=== PATIENT | female | born 1975 | race Caucasian/White ===

== ENCOUNTER 2019-02-16 12:47 | Inpatient (IN) | payer SELFPAY ==
[2019-02-16] VITALS (7 sets, daily range): BP systolic 97–107; BP diastolic 62–69; PULSE 88–116; RESP 10–20; TEMP 36.4–36.7; O2SAT 98–100; BMI 24.9; BMI 25.5; BMI 25.6
--- NOTE | 2019-02-16 13:33 | RAD_ITS ---
STUDY: X-RAY - RIGHT FOOT CLINICAL: Female, 43 years old. First toe infection TECHNIQUE: 3 view(s) of the foot. COMPARISON: None. FINDINGS: There is no evidence of fracture or dislocation. There are no definite radiographic findings of osteomyelitis. There is diffuse soft tissue swelling overlying the first toe. There are no radiodense foreign bodies. RAD/Foot min 3 Views IMPRESSION: Diffuse soft tissue swelling overlying the first toe. No fracture or dislocation. No definite radiographic findings of osteomyelitis. Electronically Signed: Adal Botello, at 14:55 EDT Tel , Service support ,
--- NOTE | 2019-02-16 13:35 | ED.VIS.LOWEX ---
History of Present Illness Chief Complaint: Cellulitis Informant: Patient Onset: Days - 4 Context: Gradual Onset Timing: Continuous Quality of Pain: Aching Location: right great toe Current Severity: Moderate Maximum Severity: Moderate Worsened by: walking, palpation Relieved by: leaving alone Associated Symptoms: Parasthesia - chronic R foot. Negative for: Weakness, Loss of Funtion Narrative: Patient states she has chronic neuropathy in her right lower extremity due to a back surgery, although she does not have chronic back pain now. She checked her foot randomly around 4 days ago and noticed that there was a wound on the bottom that look like it might be early infection. She tried to keep it clean and take care of it, but gradually it has become worse and her toes become red, painful, swollen. She denies any fevers or systemic symptoms. Wound on the bottom of her toe has been draining purulent material. She denies any immunocompromising conditions or medications recently, and she is not a diabetic. No known injury or FB that she knows of. This is the first visit to a healthcare provider for this problem. Tetanus Immunization: Unknown - Past Medical History (1) Peripheral neuropathy Status: Chronic Past Medical History - Allergies and Home Meds Allergies/Adverse Reactions: Allergies morphine Adverse Reaction (Verified 02/16/19 12:48) Hives Primary Care Physician: Care Physician,No Primary [Primary Care Provider] - Surgical History: - - back Lives: Spouse/ Significant Other Smoking Status: Current every day smoker Drugs: None Review of Systems General: Denies: Chills, Fever, Sweats Eyes: Denies: Visual changes - bilaterally, Diplopia ENT: Denies: Rhinorrhea, Sore throat Cardiovascular: Denies: Chest pain, Palpitations Respiratory: Denies: Dyspnea, Cough, Dyspnea on exertion Gastrointestinal: Denies: Abdominal pain, Nausea, Vomiting, Diarrhea, Melena, Hematochezia Genitourinary: Denies: Dysuria, Hematuria, Frequency Musculoskeletal: Reports: Extremity Pain. Denies: Back pain Skin: Reports: Abscess, Wounds Neurological: Reports: Numbness - RLE, chronically intermittent. Denies: Headache, Weakness Physical Exam Vital Signs/Narrative: Vital Signs Temp Pulse Resp BP Pulse Ox 02/16/19 12:48 97.6 F L 116 H 17 106/63 100 Inital Vital Signs reviewed: Yes General: Well nourished, Well developed, - - nad Head: Normocephalic, Atraumatic Eyes: Perrl, EOMI ENT: No Trauma, Moist Mucous Membranes Neck: Nontender, Full ROM Cardiovascular: Regular rate, Regular rhythm, No murmurs, Tachycardia Respiratory: No distress, CTA bilaterally, Chest nontender Abdomen: Soft, Nontender, Nondistended, Normal bowel sounds Skin: Rash - Right great toe is diffusely swollen, erythematous, tender. There is what appears to be a nidus at the plantar aspect of the pad of the toe where there is purulent drainage. No drainage from anywhere else. The erythema that there is out over the metatarsals, just proximal to the toe and there is no lymphangitis or tenderness proximal to the metatarsal area. No other toes are affected., - - No clear foreign body evident on physical exam at right great toe Neurological: Alert, Oriented x3, Cranial nerves II-XII grossly intact, Normal Strength, Parasthesia - Right foot decreased sensation but able to feel and is tender in the great toe Psychological: Normal affect, Normal Mood Diagnostic/Tx/Re-eval Impressions Foot X-Ray 02/16/19 13:33 IMPRESSION: Diffuse soft tissue swelling overlying the first toe. No fracture or dislocation. No definite radiographic findings of osteomyelitis. Electronically Signed: Adal Botello, at 14:55 EDT Tel , Service support , 02/16/19 13:33 Foot min 3 Views [RAD] Stat 02/16/19 14:40 Wound Abcess - Right Foot Gram Stain - Final Laboratory Results 02/16/19 02/16/19 02/16/19 13:55 13:55 13:55 WBC 10.7 RBC 4.95 Hgb 14.6 Hct 45.3 MCV 91.5 MCH 29.5 MCHC 32.2 RDW Std Deviation 45.0 H RDW Coeff of Marry 13.2 Plt Count 311 MPV 8.9 Immature Gran % (Auto) 0.300 Neut % (Auto) 74.8 H Lymph % (Auto) 17.0 L [place] % (Auto) 6.6 Eos % (Auto) 0.8 Baso % (Auto) 0.5 Absolute Neuts (auto) 8.0 H Absolute Lymphs (auto) 1.82 Nucleated RBC % 0 ESR 7 PT 13.5 INR 1.1 APTT 30.9 Sodium 139 Potassium 4.0 Chloride 107 Carbon Dioxide 28.0 Anion Gap 4 L BUN 12 Creatinine 1.03 H Estim Creat Clear Calc 69.19 Est GFR (MDRD) Af Amer 75 Est GFR (MDRD) Non-Af 62 BUN/Creatinine Ratio 11.7 Glucose 75 Lactic Acid Calcium 9.0 Total Bilirubin 0.40 AST 13 L ALT 28 Alkaline Phosphatase 91 C-React Prot Ext Range 19.00 H Total Protein 7.7 Albumin 3.4 Globulin 4.3 H Albumin/Globulin Ratio 0.8 L 02/16/19 13:55 WBC RBC Hgb Hct MCV MCH MCHC RDW Std Deviation RDW Coeff of Marry Plt Count MPV Immature Gran % (Auto) Neut % (Auto) Lymph % (Auto) [place] % (Auto) Eos % (Auto) Baso % (Auto) Absolute Neuts (auto) Absolute Lymphs (auto) Nucleated RBC % ESR PT INR APTT Sodium Potassium Chloride Carbon Dioxide Anion Gap BUN Creatinine Estim Creat Clear Calc Est GFR (MDRD) Af Amer Est GFR (MDRD) Non-Af BUN/Creatinine Ratio Glucose Lactic Acid 4.5 H* Calcium Total Bilirubin AST ALT Alkaline Phosphatase C-React Prot Ext Range Total Protein Albumin Globulin Albumin/Globulin Ratio - Medical Decision Making Although patient does not meet sirs criteria, her lactate is 4.5. More concerning is a clinical appearance of her toe infection. There is pus coming out of the plantar wound, I prepped this in sterile fashion with chlorhexidine and expressed fresh purulent material onto a pair of culture swabs and sent that before antibiotics were begun. She was given empiric vancomycin here. X-rays do not show any radiographic evidence of osteomyelitis, her CRP is significantly elevated but her ESR is normal, her white blood count is at the high end of the normal range and there are no bands. The ancillary testing does not rule out the possibility of significant infection here, it does not rule in or rule out osteomyelitis, and blood cultures were sent to rule out resultant bacteremia from this infection. I discussed with podiatry Dr. boogie, who after seen the infection agrees that certainly there is the possibility of early osteomyelitis that has not yet shown on x-ray and recommends admission, IV antibiotics, and possible surgical debridement. Patient was apprehensive about this and there were long delays in the ER because of her apprehension given social issues outside of the emergency department and her foot but was eventually agreeable to stay. It is unknown if she has a non-radiopaque foreign body present or if this is an infected blister or abrasion. ED Disposition - Plan for ED Patient: Disposition: Acute [facility] Diagnosis: Right foot infection Referrals: Care Physician,No Primary [Primary Care Provider] -
[2019-02-16 14:09] LABS: Absolute Lymphocyte Count 1.82 X10^3/uL (0.83-4.51); Basophil# 0.05 X10^3/uL; Basophil% 0.5 % (0-1); Eosinophil# 0.09 X10^3/uL; Eosinophils% 0.8 % (0-5); Hematocrit 45.3 % (37-47); Hemoglobin 14.6 g/dL (12.0-15.0); Lymphocyte # 1.82 X10^3/ul (4.0); Mean Corp Hgb Conc 32.2 g/dL (32-36); Mean Corpuscular Hgb 29.5 pg (27.0-32.0); Mean Corpuscular Volume 91.5 fL (81-99); Mean Platelet Vol. 8.9 fl (6.2-12.0); Monocyte# 0.71 X10^3/uL; Monocyte% 6.6 % (0-10); NRBC Flagged by Analyzer 0 % (0-5); Neutrophil # 8.03 X10^3/uL (2.7-7.7); Neutrophil % 74.8 % (47-70); Platelet Count 311 K/mm3 (150-450); RBC Distribution Width CV 13.2 % (11.6-14.6); Red Blood Count 4.95 M/mm3 (4.2-5.4); White Blood Count 10.7 K/mm3 (4.4-11.0)
[2019-02-16 14:18] LABS: Erythrocyte Sedimentation Rate 7 mm/hr (0-20)
[2019-02-16 14:27] LABS: ALB/GLOB Ratio 0.8 RATIO (0.9-2.4); AST(SGOT) 13 U/L (15-37); Alanine Aminotransfer ALT/SGPT 28 U/L (13-56); Albumin, Serum 3.4 g/dL (3.2-5.0); Alkaline Phosphatase 91 U/L (45-117); Anion Gap 4 (5-15); BUN 12 mg/dL (7-18); BUN/Creat Ratio 11.7 RATIO (10-20); Chloride 107 mmol/L (98-107); Creatinine, Serum 1.03 mg/dL (0.55-1.02); EST Glomerular Filtration Rate 62 mL/min (>60); Est Glom Filt Rate - Afr Amer 75 mL/min (>60); Estimated Creatinine Clearance 69.19 ml/min; Globulin 4.3 g/dL (2.2-4.2); Glucose 75 mg/dL (74-106); Protein, Total 7.7 g/dL (6.4-8.2); Sodium Level 139 mmol/L (136-145)
[2019-02-16 14:30] LABS: International Normalized Ratio 1.1; Prothrombin Time (Protime)PT. 13.5 SECONDS (11.7-14.9)
[2019-02-16 14:31] LABS: Partial Thromboplast Time 30.9 Seconds (24.1-36.2)
[2019-02-16] MEDS: Vancomycin IV 1,000 MG/200 ML BAG 200 MG IV (14:31)
[2019-02-16 14:40] LABS: Lactic Acid 4.5 mmol/L (0.4-2.0)
--- NOTE | 2019-02-16 14:40 | ED.RN ---
DR BURNHAM NOTIFIED LACTIC=4.5. NNO VOICED
[2019-02-16 18:04] LABS: Reflex Lactate? Y
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
[2019-02-16] MEDS: LORazepam 1 MG Tablet PO (19:12)
[2019-02-16] MEDS: HYDROcodone Bitartrate/Apap 5/325 Tablet PO (19:12)
[2019-02-16 19:27] LABS: Lactic Acid 1.8 mmol/L (0.4-2.0)
--- NOTE | 2019-02-16 20:05 | RAD_ITS ---
STUDY: X-RAY CHEST REASON FOR EXAM: Female, 43 years old. Pre-op TECHNIQUE: Single frontal view of the chest. COMPARISON: None. FINDINGS: The lungs are clear and expanded. There is no demonstrated pleural abnormality. Normal size heart. Normal mediastinum and jace. Normal visualized pulmonary arteries. Normal visualized aortic arch and descending thoracic aorta. Normal visualized thoracic spine. Normal visualized ribs, clavicles, and shoulders. There is no demonstrated abnormality of the visualized soft tissue structures of the upper abdomen. RAD/Chest 1 View IMPRESSION: Normal x-ray examination of the chest. Electronically Signed: James Syed MD at 21:25 EDT Tel , Service support ,
--- NOTE | 2019-02-16 20:32 | PCM.HP.STD ---
History of Present Illness Date of Admission: 02/16/19 Chief Complaint: Right foot infection The patient is a 43 year old female with history of lumbar back surgery (fusion), right drop foot, and peripheral neuropathy presented to the ER today for wound right 1st toe with swelling and redness. She relates this started on Monday, she there might be something in it, she relates she tried to get it out herself. She relates there is drainage as well. Right foot xrays obtained in the ER and negative for gas or osteomyelitis. WBC normal. Lactic acid elevated. Patient afebrile. She relates to some pain to the 1st toe. In the ER there was noted to be significant erythema, edema and purulence present. Due to this she was admitted for IV antibiotics and planning for OR to do debridement and I+D right foot. Patient relates she smokes 1PPD since she was 15 years old. She relates to history of anxiety, but denies any other medical problems. Past Medical History Past Medical History (Chronic Problems): Chronic Problems Peripheral neuropathy (Chronic) Allergies morphine Adverse Reaction (Verified 02/16/19 12:48) Hives Home Medications: Ambulatory Orders Medication Instructions Recorded NK 02/16/19 Surgical History: - - back Lives: Spouse/ Significant Other Smoking Status: Current every day smoker Drugs: None - *Family History Maternal History Items: - - . Sibling History Items: Heart Disease - brother Review of Systems Constitutional: Denies: Chills, Fever Cardiovascular: Denies: Chest Pain, Chest Pressure Respiratory: Denies: Shortness of Breath Gastrointestinal: Denies: Nausea, Vomiting Musculoskeletal: Reports: Foot Pain. Denies: Back Pain, Joint Pain, Joint stiffness VTE Information - Inpt Only VTE Present on Admission: No Patient Problems: Active and Suspected Problems Right foot infection (Acute) - Physical Exam General: Alert, Oriented x3, Cooperative, No apparent distress Extremities: Capillary Refill Less than 3 Seconds, No Calf Tenderness, Peripheral Pulses Normal, - - Ulceration plantar right hallux with serous drainage at this time, there is erythema and edema to the 1st toe, edema extends to the entire dorsal right foot, no streaking, no visible abscess, there is pain on palpation to the 1st toe and unable to fully evaluate depth due to pain, but there is decreased sensation to the foot c/w peripheral neuropathy. Vascular status intact bilateral foot/ankle, no evidence of acute ischemia to the foot or ankle bilateral. No open lesions or evidence of infection left foot or ankle. CFT < 2 seconds to all toes bilateral. Motor function and muscle strength intact to the foot/ankle with exception dorsiflexion weakness on the right foot/ankle. POP to the right 1st toe, there is hallux valgus bunion deformity right foot, no other POP or pain on ROM to the rest of the foot or ankle bilateral. Musculoskeletal: No Muscle Wasting Psych/Mental Status: Normal Affect, Alert and oriented to time, place, person, mood and affect Vital Signs Temp Pulse Resp BP Pulse Ox 97.7 F L 97 16 107/66 98 02/16/19 17:25 02/16/19 17:25 02/16/19 19:12 02/16/19 17:25 02/16/19 17:25 Oxygen Delivery Method Room Air Weight: 74.1 kg Body Mass Index (BMI) 25.5 Intake and Output for Last 24 Hours 02/14/19 02/15/19 02/16/19 23:59 23:59 23:59 Intake Total 200 / 200 Balance 200 / 200 Microbiology Past 72 Hours 02/16/19 14:40 Gram Stain - Final Wound Abcess - Right Foot Laboratory Tests Past 24 Hrs 02/16/19 02/16/19 02/16/19 13:55 13:55 13:55 WBC 10.7 RBC 4.95 Hgb 14.6 Hct 45.3 MCV 91.5 MCH 29.5 MCHC 32.2 RDW Std Deviation 45.0 H RDW Coeff of Marry 13.2 Plt Count 311 MPV 8.9 Immature Gran % (Auto) 0.300 Neut % (Auto) 74.8 H Lymph % (Auto) 17.0 L [place] % (Auto) 6.6 Eos % (Auto) 0.8 Baso % (Auto) 0.5 Absolute Neuts (auto) 8.0 H Absolute Lymphs (auto) 1.82 Nucleated RBC % 0 ESR 7 PT 13.5 INR 1.1 APTT 30.9 Sodium 139 Potassium 4.0 Chloride 107 Carbon Dioxide 28.0 Anion Gap 4 L BUN 12 Creatinine 1.03 H Estim Creat Clear Calc 69.19 Est GFR (MDRD) Af Amer 75 Est GFR (MDRD) Non-Af 62 BUN/Creatinine Ratio 11.7 Glucose 75 Lactic Acid Calcium 9.0 Total Bilirubin 0.40 AST 13 L ALT 28 Alkaline Phosphatase 91 C-React Prot Ext Range 19.00 H Total Protein 7.7 Albumin 3.4 Globulin 4.3 H Albumin/Globulin Ratio 0.8 L S.aureus Protein A PCR MRSA (PCR) 02/16/19 02/16/19 02/16/19 13:55 14:40 18:52 WBC RBC Hgb Hct MCV MCH MCHC RDW Std Deviation RDW Coeff of Marry Plt Count MPV Immature Gran % (Auto) Neut % (Auto) Lymph % (Auto) [place] % (Auto) Eos % (Auto) Baso % (Auto) Absolute Neuts (auto) Absolute Lymphs (auto) Nucleated RBC % ESR PT INR APTT Sodium Potassium Chloride Carbon Dioxide Anion Gap BUN Creatinine Estim Creat Clear Calc Est GFR (MDRD) Af Amer Est GFR (MDRD) Non-Af BUN/Creatinine Ratio Glucose Lactic Acid 4.5 H* 1.8 Calcium Total Bilirubin AST ALT Alkaline Phosphatase C-React Prot Ext Range Total Protein Albumin Globulin Albumin/Globulin Ratio S.aureus Protein A PCR Pending MRSA (PCR) Pending Assessment/Plan All Active Problems Right foot infection (Acute) Cellulitis right with abscess and concern for osteomyelitis right 1st toe Peripheral neuropathy, drop right foot Patient will be admitted for IV antibiotics and planning to go to OR tomorrow tomorrow. This was discussed with her, she agreed with this plan. Vanc/Zosyn started, cultures obtained and results pending at this time. MRI ordered right foot. Discussed with patient debridement with I+D, possible bone biopsy right foot - reviewed rationale of this, as well as possible benefits vs risks, goals, and expectations. Acetaminophen and Toradol for pain management. Hospitalist service consulted for medical evaluation and management. Discussed with Dr. Calderon.
--- NOTE | 2019-02-16 20:43 | PCM.RX.CS ---
Consult Pharmacy has been consulted to manage selected antiobiotic: Vancomycin Type of Consult: New start Suspected Infection: Skin/Soft tissue Labs: Sodium 139 mmol/L (136-145) 02/16/19 13:55 Potassium 4.0 mmol/L (3.5-5.1) 02/16/19 13:55 Chloride 107 mmol/L (98-107) 02/16/19 13:55 Carbon Dioxide 28.0 mmol/L (21.0-32.0) 02/16/19 13:55 Anion Gap 4 (5-15) L 02/16/19 13:55 BUN 12 mg/dL (7-18) 02/16/19 13:55 Creatinine 1.03 mg/dL (0.55-1.02) H 02/16/19 13:55 Est GFR (MDRD) Af Amer 75 mL/min (>60) 02/16/19 13:55 Est GFR (MDRD) Non-Af 62 mL/min (>60) 02/16/19 13:55 BUN/Creatinine Ratio 11.7 RATIO (10-20) 02/16/19 13:55 Glucose 75 mg/dL (74-106) 02/16/19 13:55 Microbiology: Microbiology 02/16/19 14:40 Wound Abcess - Right Foot Gram Stain - Final Weight used for dosin.1 kg Estimated Creatinine Clearance: 74.8 Goal Trough: 10-15 mcg/mL Pharmacy Plan for Drug Dosing: Pharmacy Service will continue to monitor and adjust dosing as required. Medications Vancomycin HCl 750 mg/ Sodium (Chloride) 265 mls @ 250 mls/hr IV Q12H LUCIANA Discontinued Medications Vancomycin HCl (Vancomycin) 1,000 mg in 200 mls @ 200 mls/hr IV X1 ONE Stop: 02/16/19 14:59 Last Admin: 02/16/19 15:31 Dose: Infused Documented by: Follow-Up Labs: Trough Vancomycin Labs to be done on [date and time ordered]: 02/18 @ 0200
[2019-02-16] MEDS: 0.9% NaCl Peripheral Flush Adult/Peds IV (20:45)
[2019-02-16 21:18] LABS: Cholesterol 176 mg/dL (200); High Density Lipoprotein 77 mg/dL; Triglycerides 168 mg/dL; Very Low Density Lipoprotein 34 mg/dL (5-40)
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
[2019-02-16 21:47] LABS: Probe Check PASS; Staph aureus DNA By PCR POSITIVE (Negative)
[2019-02-16 21:49] LABS: M R Staph aureus DNA By PCR POSITIVE (Negative)
[2019-02-16] MEDS: 0.9% NaCl IVPB Med Flush (250 mL) 15 ML IV (21:59)
[2019-02-16 22:35] LABS: Uric Acid 3.1 mg/dL (2.6-6.0)
[2019-02-17] VITALS (10 sets, daily range): BP systolic 83–100; BP diastolic 50–63; PULSE 72–87; RESP 16–18; TEMP 36.3–37.2; O2SAT 98–100; BMI 25.5
[2019-02-17 00:02] LABS: Internal QC Validated? YES +Cl - CLEAR BKGD; Pregnancy, Urine Negative Negative
[2019-02-17 06:28] LABS: Absolute Lymphocyte Count 1.78 X10^3/uL (0.83-4.51); Absolute Neutrophil Count 5.4 X10^3/uL (2.0-7.7); Basophil# 0.06 X10^3/uL; Basophil% 0.8 % (0-1); Eosinophil# 0.09 X10^3/uL; Eosinophils% 1.1 % (0-5); Hematocrit 46.1 % (37-47); Lymphocyte # 1.78 X10^3/ul (4.0); Lymphocyte % 22.5 % (19-41); Mean Corp Hgb Conc 32.5 g/dL (32-36); Mean Corpuscular Hgb 30.1 pg (27.0-32.0); Mean Corpuscular Volume 92.4 fL (81-99); Mean Platelet Vol. 9.1 fl (6.2-12.0); Monocyte# 0.52 X10^3/uL; Monocyte% 6.6 % (0-10); NRBC Flagged by Analyzer 0 % (0-5); Neutrophil # 5.42 X10^3/uL (2.7-7.7); Neutrophil % 68.6 % (47-70); Platelet Count 310 K/mm3 (150-450); RBC Distribution Width CV 13.2 % (11.6-14.6); Red Blood Count 4.99 M/mm3 (4.2-5.4); White Blood Count 7.9 K/mm3 (4.4-11.0)
--- NOTE | 2019-02-17 06:43 | NURSING ---
Report given to OR. They are ready for pt at this time.
[2019-02-17 06:47] LABS: Anion Gap 4 (5-15); BUN 15 mg/dL (7-18); BUN/Creat Ratio 18.9 RATIO (10-20); Calcium,Total 8.7 mg/dL (8.5-10.1); Chloride 106 mmol/L (98-107); EST Glomerular Filtration Rate 84 mL/min (>60); Est Glom Filt Rate - Afr Amer 102 mL/min (>60); Estimated Creatinine Clearance 89.08 ml/min; Glucose 97 mg/dL (74-106); Potassium 4.7 mmol/L (3.5-5.1); Sodium Level 137 mmol/L (136-145)
[2019-02-17] MEDS: 0.9% Normal Saline 1,000 ML 100 ML IV (07:00)
[2019-02-17] MEDS: Bupivacaine Mpf 0.5% 30 ML VIAL (07:16)
--- NOTE | 2019-02-17 07:37 | PCM.OPRPT ---
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 WBC and ESR normal, CRP elevated at 19. MRSA DNA PCR positive. Xrays right foot with no gas or evidence of osteomyelitis. Patient has significant cellulitis, edema and pain to the right foot especially right 1st toe. Given the findings she was admitted for antibiotics with surgical planning. She elected to proceed with debridement and I+D right foot. This was discussed with her in detail, reviewed rationale of this with her, along with the possible benefits vs risks, goals and expectations. Advised patient risks include but are not limited to persistent infection, worsening infection, pain, swelling, numbness, delayed healing, nonhealing, blood clots, weakness, loss of function, loss of limb, loss of life. Patient able to repeat back. All of her questions were answered. No guarantees were made nor implied. The consent form was reviewed with patient and she freely signed it. 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 Operative Procedure: The patient was brought back to the operating room and was placed on the operating room in the supine position. She was carefully secured with a safety belt around her waist. A timeout was performed and the patient was properly identified and the surgical plan confirmed. The patient is already on IV antibiotic therapy. A well padded pneumatic tourniquet was applied around the right ankle. The patient received MAC anesthesia per the anesthesia team. The skin was cleaned with 70% isopropyl alcohol and a right foot 1st ray block was completed using 10mL of 0.5% Bupivacaine plain. The right foot was scrubbed, prepped, and draped in the usual aseptic fashion. Further attention was directed to the right foot. There is ulceration to the plantar 1st toe with purulence, as well as significant cellulitis and noted edema which extended to the dorsal foot. The right foot was elevated and the right ankle pneumatic tourniquet was inflated to 250mmHg. The 1st toe was milked and there was significant purulence present. A deep wound culture was obtained from the site and sent to microbiology for further evaluation. The wound was noted to extend down to the tendon/fascia layer of the plantar 1st toe. There was noted undermining of the ulceration along with callus formation around the edges. The ulcer measured 0.3cm x 0.5cm prior to debridement. There was nonviable tissue to the base and margins, with abscess formation present to the site. The ulceration was debrided in excisional fashion removing all nonviable tissue as well as removing the abscess. This was done with a combination of 15 blade, rongeur as well as a sharp curette. This was debrided down to healthy viable base and margins. There was no probe to bone, and did not appear to involve bone at this time. Post debridement the ulceration measured 3.5cm x 1cm and 0.5cm in depth down to the fascia and tendon layer. Attention was directed to the dorsal 1st toe, and an incision was made just medial to the extensor hallucis tendon. The subcutaneous tissue was visualized, there was significant yellow serous drainage present consistent with infection, otherwise the remaining tissues were healthy, viable and intact. No probe to bone and did not appear bone was involved at this level. The sites were flushed out with copious amounts of normal saline solution. All remaining tissues appeared healthy and viable at this time. The site was packed with 1/4inch Iodoform packing, and overlying gauze, Kerlix and paulina bandage was applied. The pneumatic tourniquet was deflated and there was immediate return of warmth and perfusion to the foot and all 5 toes. CFT< 2 seconds to all toes. Total tourniquet time was 10 minutes. The patient was transported from the operating room to the recovery room with vital signs stable and in good condition. Post operative orders placed. No weightbearing right foot, keep right foot elevated. Continue to follow cultures and continue with antibiotic therapy at this time. Patient will be followed as inpatient at this time. Grafts/Implants Used: None - Complications None
--- NOTE | 2019-02-17 08:08 | PCA ---
pt off floor
--- NOTE | 2019-02-17 08:12 | NURSING ---
call placed to lab about sample received from surgery.. per Dr. Sandoval if no tissue present then AFB can not be run. but fungus and deep wound cultures should be run.
--- NOTE | 2019-02-17 14:55 | PN_ITS ---
Patient Problems: Active and Suspected Problems Right foot infection (Acute) Subjective: Patient seen and examined today on [facility] [place] [place] [facility], she had surgery on her right foot today by podiatry. Patient has no complaints of discomfort in her foot at this time, she has no complaints of any shortness of breath or chills. - Physical Exam General: Alert, Oriented x3, Cooperative, No apparent distress, Well developed HEENT: Atraumatic, PERRLA, EOMI, Normocephalic Oral: Moist Mucosa Neck: Supple, No JVD, Trachea Midline, Thyroid Normal Size and Texture Lungs: Clear to auscultation, Normal air movement, No rhonchi, No wheeze, No rales Cardiovascular: Regular rate, Regular Rhythm, Normal S1, Normal S2, No murmurs, PMI Normal, No rub noted Abdomen: Bowel Sounds Present, Soft, Non Tender, Non-Distended Extremities: No cyanosis, Capillary Refill Less than 3 Seconds Neurological: Cranial nerves II-XII grossly intact, Neuro grossly intact, Muscle tone normal, Sensory exam intact to light touch and pain Psych/Mental Status: Normal Affect, Appropriate, Alert and oriented to time, place, person, mood and affect Vital Signs Temp Pulse Resp BP Pulse Ox 97.6 F L 72 16 98/60 100 02/17/19 08:29 02/17/19 08:29 02/17/19 08:29 02/17/19 08:29 02/17/19 08:29 Oxygen Delivery Method Room Air Weight: 74.1 kg Body Mass Index (BMI) 25.5 Intake and Output for Last 24 Hours 02/15/19 02/16/19 02/17/19 23:59 23:59 23:59 Intake Total 212 / 512 706.25 / 706.25 Output Total 700 / 700 Balance 212 / 512 6.25 / 6.25 Microbiology Past 72 Hours 02/16/19 14:40 Gram Stain - Final Wound Abcess - Right Foot Wound Culture - Preliminary Staphylococcus aureus 02/16/19 14:24 Urine Culture - Preliminary Urine, Clean Catch Culture exhibits no growth. Laboratory Tests Past 24 Hrs 02/16/19 02/16/19 02/16/19 13:55 13:55 14:24 WBC RBC Hgb Hct MCV MCH MCHC RDW Std Deviation RDW Coeff of Marry Plt Count MPV Immature Gran % (Auto) Neut % (Auto) Lymph % (Auto) [place] % (Auto) Eos % (Auto) Baso % (Auto) Absolute Neuts (auto) Absolute Lymphs (auto) Nucleated RBC % Sodium Potassium Chloride Carbon Dioxide Anion Gap BUN Creatinine Estim Creat Clear Calc Est GFR (MDRD) Af Amer Est GFR (MDRD) Non-Af BUN/Creatinine Ratio Glucose Lactic Acid Uric Acid 3.1 Calcium Triglycerides 168 Cholesterol 176 LDL Cholesterol 65 VLDL Cholesterol 34 HDL Cholesterol 77 Urine Test Negative S.aureus Protein A PCR MRSA (PCR) 02/16/19 02/16/19 02/17/19 14:40 18:52 05:50 WBC 7.9 RBC 4.99 Hgb 15.0 Hct 46.1 MCV 92.4 MCH 30.1 MCHC 32.5 RDW Std Deviation 45.0 H RDW Coeff of Marry 13.2 Plt Count 310 MPV 9.1 Immature Gran % (Auto) 0.400 Neut % (Auto) 68.6 Lymph % (Auto) 22.5 [place] % (Auto) 6.6 Eos % (Auto) 1.1 Baso % (Auto) 0.8 Absolute Neuts (auto) 5.4 Absolute Lymphs (auto) 1.78 Nucleated RBC % 0 Sodium Potassium Chloride Carbon Dioxide Anion Gap BUN Creatinine Estim Creat Clear Calc Est GFR (MDRD) Af Amer Est GFR (MDRD) Non-Af BUN/Creatinine Ratio Glucose Lactic Acid 1.8 Uric Acid Calcium Triglycerides Cholesterol LDL Cholesterol VLDL Cholesterol HDL Cholesterol Urine Test S.aureus Protein A PCR POSITIVE H MRSA (PCR) POSITIVE H 02/17/19 05:50 WBC RBC Hgb Hct MCV MCH MCHC RDW Std Deviation RDW Coeff of Marry Plt Count MPV Immature Gran % (Auto) Neut % (Auto) Lymph % (Auto) [place] % (Auto) Eos % (Auto) Baso % (Auto) Absolute Neuts (auto) Absolute Lymphs (auto) Nucleated RBC % Sodium 137 Potassium 4.7 Chloride 106 Carbon Dioxide 27.0 Anion Gap 4 L BUN 15 Creatinine 0.80 Estim Creat Clear Calc 89.08 Est GFR (MDRD) Af Amer 102 Est GFR (MDRD) Non-Af 84 BUN/Creatinine Ratio 18.9 Glucose 97 Lactic Acid Uric Acid Calcium 8.7 Triglycerides Cholesterol LDL Cholesterol VLDL Cholesterol HDL Cholesterol Urine Test S.aureus Protein A PCR MRSA (PCR) Medical Necessity - Tobacco Use Smoking Status: Current every day smoker Assessment/Plan All Active Problems Right foot infection (Acute) #1 right foot abscess-postop day 0 debridement of right foot abscess from MRSA- patient appears medically stable after surgery, continue present antibiotics #2 right lower extremity chronic neuropathy #3 degenerative joint disease of the lumbar spine #4 chronic right foot drop Code Visit Inpatient E&M: 43282 Subs Hosp L2
--- NOTE | 2019-02-17 15:58 | NURSING ---
at 1300 found pt outside of hospital along the side of the building. informed pt that she needs to go back to room to hang antibiotics. pt asked how she can leave today.. reminded her that when Dr. Sandoval was in room that he stated she needed to stay until tomorrow (02/18). pt stated that she wanted to leave . Informed her i can get a hold of doctor to see if will d/c and if not she can leave AMA. pt agreeable to AMA. Called Dr. Sandoval, he wants pt to come to office around 11am tomorrow (Mon 02/18) to get dressing changed and he will send antibiotic to [facility]..
--- NOTE | 2019-02-17 16:12 | NURSING ---
at 1330 informed pt of speaking with Dr. Sandoval and dressing and antibiotic orders. pt agreeable to this. pt asked if can have 1 of her 2 antibiotics that are due. Hung Vancomycin. . at 1450 antibiotic finished, iv d/c and pt left with previous instructions, informed pt to keep foot dry/clean, nonweight bearing to front of foot only weight to heel. pt left with crutches.
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
== END 2019-02-17 15:00 | disposition left against medical advice (07) | DRG 571 ==
LOC: ED 18:41 → MS3 20:04
PROVIDERS: Anesthesiology; Family Medicine; Admitting Provider Podiatrist; Emergency Provider Emergency Medicine; Referring Provider Podiatrist; Visit Provider Internal Medicine
PROC: 0JBQ0ZZ Excision of Right Foot Subcutaneous Tissue and Fascia, Open Approach (ICD-10-PCS; principal; 2019-02-17 07:00)
DX: L03.115 Cellulitis of right lower limb (principal); L02.611 Cutaneous abscess of right foot; L97.519 Non-pressure chronic ulcer of other part of right foot with unspecified severity; G62.9 Polyneuropathy, unspecified; M21.371 Foot drop, right foot; F17.210 Nicotine dependence, cigarettes, uncomplicated
CPT/HCPCS: 36415; 71045; 73630; 80048; 80053; 80061; 81025; 83605; 84550; 85025; 85610; 85652; 85730; 86140; 87040; 87070; 87075; 87077; 87086; 87102; 87186; 87205; 87206; 87640; 93005; 97162; 97802; 99283; J7030; J7050; A4216; J2405

== ENCOUNTER 2020-08-26 18:50 | Emergency (ER) | payer MEDICAID, SELFPAY ==
[2019-02-17 05:24] VITALS: BMI 25.5
[2020-08-26 18:51] VITALS: BP 118/78; PULSE 116; RESP 18; TEMP 36.9; O2SAT 93; BMI 22.7
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
[2020-08-26 21:52] LABS: Absolute Lymphocyte Count 2.02 X10^3/uL (0.83-4.51); Absolute Neutrophil Count 10.9 X10^3/uL (2.0-7.7); Basophil# 0.05 X10^3/uL; Basophil% 0.4 % (0-1); Eosinophil# 0.23 X10^3/uL; Eosinophils% 1.6 % (0-5); Hematocrit 32.3 % (37-47); Hemoglobin 10.4 g/dL (12.0-15.0); Lymphocyte # 2.02 X10^3/ul (4.0); Lymphocyte % 14.1 % (19-41); Mean Corp Hgb Conc 32.2 g/dL (32-36); Mean Corpuscular Hgb 28.3 pg (27.0-32.0); Mean Corpuscular Volume 87.8 fL (81-99); Mean Platelet Vol. 8.6 fl (6.2-12.0); Monocyte# 0.82 X10^3/uL; Monocyte% 5.7 % (0-10); NRBC Flagged by Analyzer 0 % (0-5); Neutrophil # 10.87 X10^3/uL (2.7-7.7); Neutrophil % 76.2 % (47-70); Platelet Count 742 K/mm3 (150-450); RBC Distribution Width CV 14.5 % (11.6-14.6); Red Blood Count 3.68 M/mm3 (4.2-5.4); White Blood Count 14.3 K/mm3 (4.4-11.0)
[2020-08-26 22:05] LABS: Anion Gap 4 (5-15); BUN 18 mg/dL (7-18); BUN/Creat Ratio 29.8 RATIO (10-20); Calcium,Total 8.8 mg/dL (8.5-10.1); Chloride 106 mmol/L (98-107); EST Glomerular Filtration Rate 115 mL/min (>60); Est Glom Filt Rate - Afr Amer 139 mL/min (>60); Estimated Creatinine Clearance 116.36 ml/min; Glucose 96 mg/dL (74-106); Potassium 3.9 mmol/L (3.5-5.1); Sodium Level 136 mmol/L (136-145)
[2020-08-26 23:00] VITALS: BP 90/57; PULSE 99; RESP 18; O2SAT 98
[2020-08-26 23:50] VITALS: BP 90/57; PULSE 99; RESP 18; O2SAT 98
== END 2020-08-27 01:55 | disposition short-term general hospital (02) ==
PROVIDERS: Emergency Medicine; Emergency Provider Emergency Medicine
DX: S00.12XA Contusion of left eyelid and periocular area, initial encounter (principal); S92.909A Unspecified fracture of unspecified foot, initial encounter for closed fracture; S37.29XA Other injury of bladder, initial encounter; S32.9XXA Fracture of unspecified parts of lumbosacral spine and pelvis, initial encounter for closed fracture; S42.009A Fracture of unspecified part of unspecified clavicle, initial encounter for closed fracture; S22.49XA Multiple fractures of ribs, unspecified side, initial encounter for closed fracture; V89.2XXA Person injured in unspecified motor-vehicle accident, traffic, initial encounter; Y93.9 Activity, unspecified; Y92.9 Unspecified place or not applicable; F17.200 Nicotine dependence, unspecified, uncomplicated; Z86.718 Personal history of other venous thrombosis and embolism; Z91.14 Patient's other noncompliance with medication regimen
CPT/HCPCS: 80048; 85025; 99285; A4216

== ENCOUNTER 2020-09-11 18:44 | Emergency (ER) | payer MEDICAID, SELFPAY ==
[2020-09-11 18:47] VITALS: BP 130/78; PULSE 124; RESP 15; TEMP 37; O2SAT 96; BMI 27.6
--- NOTE | 2020-09-11 19:11 | EKG12_ITS ---
Test Reason : DYSRHYTHMIA Blood Pressure : / mmHG Vent. Rate : 128 BPM Atrial Rate : 128 BPM P-R Int : 130 ms QRS Dur : 088 ms QT Int : 318 ms P-R-T Axes : 060 019 -04 degrees QTc Int : 464 [address] abnormality Abnormal ECG Confirmed by MELISSA WILD, BUBBA ([id number]), electronic news gathering editor EUN MORA ([id number]) on 09/14/2020 9:50:29 AM Referred By: KATHLEEN Confirmed By:TOMAS TORRES MD
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
[2020-09-11] MEDS: 0.9% Normal Saline 1,000 ML 999 ML IV (19:38)
[2020-09-11 19:44] LABS: Absolute Lymphocyte Count 1.73 X10^3/uL (0.83-4.51); Absolute Neutrophil Count 8.4 X10^3/uL (2.0-7.7); Basophil# 0.03 X10^3/uL; Basophil% 0.3 % (0-1); Eosinophil# 0.07 X10^3/uL; Eosinophils% 0.6 % (0-5); Hematocrit 30.3 % (37-47); Hemoglobin 9.6 g/dL (12.0-15.0); Lymphocyte # 1.73 X10^3/ul (0.83-4.51); Lymphocyte % 15.3 % (19-41); Mean Corp Hgb Conc 31.7 g/dL (32-36); Mean Corpuscular Hgb 27.3 pg (27.0-32.0); Mean Corpuscular Volume 86.1 fL (81-99); Mean Platelet Vol. 8.2 fl (6.2-12.0); Monocyte# 1.02 X10^3/uL; NRBC Flagged by Analyzer 0 % (0-5); Neutrophil # 8.37 X10^3/uL (2.7-7.7); Neutrophil % 74.2 % (47-70); Platelet Count 540 K/mm3 (150-450); RBC Distribution Width SD 43.8 fl (35.1-43.9); Red Blood Count 3.52 M/mm3 (4.2-5.4); White Blood Count 11.3 K/mm3 (4.4-11.0)
[2020-09-11] MEDS: Enoxaparin 80 MG/0.8 ML Syringe SC (19:49)
--- NOTE | 2020-09-11 19:49 | RAD_ITS ---
INDICATION: weakness EXAMINATION/TECHNIQUE: X-RAY - XR Chest 1 View COMPARISON: None. FINDINGS: Low lung volumes. Slight increase in interstitial markings, most likely due to low lung volumes. The cardiomediastinal silhouette is unremarkable. No pleural effusion or pneumothorax. No acute osseous abnormalities. Chronic fracture deformity of the right clavicle with plate and screw construct. RAD/Chest 1 View (Portable) IMPRESSION: No acute radiographic abnormalities. Electronically Signed: Star Dong MD at 20:15 EDT Tel , Service support ,
[2020-09-11 19:55] LABS: Mucous, Urine 0 SEEN /hpf (<or=2+); Squamous Epithelial Cells - UA 0 SEEN /hpf (5-10)
[2020-09-11 20:00] LABS: International Normalized Ratio 1.2; Partial Thromboplast Time 37.5 Seconds (24.1-36.2); Prothrombin Time (Protime)PT. 14.1 SECONDS (11.7-14.9)
[2020-09-11 20:10] LABS: ALB/GLOB Ratio 0.6 RATIO (0.9-2.4); AST(SGOT) 86 U/L (15-37); Alanine Aminotransfer ALT/SGPT 46 U/L (13-56); Albumin, Serum 2.8 g/dL (3.2-5.0); Alkaline Phosphatase 175 U/L (45-117); Anion Gap 7 (5-15); BUN 13 mg/dL (7-18); BUN/Creat Ratio 16.4 RATIO (10-20); Calcium,Total 9.2 mg/dL (8.5-10.1); Chloride 101 mmol/L (98-107); Creatinine, Serum 0.79 mg/dL (0.55-1.02); EST Glomerular Filtration Rate 84 mL/min (>60); Est Glom Filt Rate - Afr Amer 101 mL/min (>60); Estimated Creatinine Clearance 88.37 ml/min; Globulin 4.9 g/dL (2.2-4.2); Glucose 110 mg/dL (74-106); Lipase 32 U/L (73-393); Potassium 4.2 mmol/L (3.5-5.1); Protein, Total 7.7 g/dL (6.4-8.2); Sodium Level 135 mmol/L (136-145)
[2020-09-11 20:11] LABS: Lactic Acid 1.4 mmol/L (0.4-1.9)
--- NOTE | 2020-09-11 20:12 | CT_ITS ---
EXAMINATION : Head CT w/out contrast HISTORY : left sided weakness COMPARISON : None. TECHNIQUE : Multiple contiguous axial images were obtained from the skull base to the vertex without intravenous contrast. A radiation dose optimization technique was used for this scan. FINDINGS : The ventricles and sulci are normal in size. There is no evidence for acute intracranial hemorrhage, mass effect, or midline shift. There is no extra-axial fluid collection. There is normal sullivan-white differentiation, without CT evidence of acute ischemia or infarct. The skull base and calvarium are unremarkable. The orbits are unremarkable. Logan cisterna magna. The paranasal sinuses are clear. The mastoid air cells are well-aerated. The soft tissues are unremarkable. CT/Brain/Head without Contrast IMPRESSION: No acute intracranial abnormality. Logan cisterna magna. Electronically Signed: Star Dong MD at 21:19 EDT Tel , Service support ,
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
[2020-09-11 20:16] LABS: Alcohol, Blood (Medical)-Serum < 3.0 mg/dL
[2020-09-11 20:19] LABS: Color, Urine Yellow (Yellow); Glucose, Dipstick Normal (Normal); Ketone-Dipstick 5 mg/dl (Negative); Leukocyte Esterase-Dipstick 500 /ul (Negative); Nitrite-Dipstick Positive (Negative); Occult Blood-Urine 250 /ul (Negative); Protein-Dipstick 100 mg/dl (Negative); Specific Gravity, Urine 1.025 (1.002-1.030); Urine Bilirubin Dipstick Negative (Negative); Urine Clarity Cloudy (Clear); Urine Urobilinogen Normal (Normal)
[2020-09-11 20:33] LABS: Bacteria 1+ /hpf (None Seen); Red Blood Cells-Urine > 100 SEEN /hpf (0-5); White Blood Cells >100 SEEN /hpf (0-5)
[2020-09-11 20:35] LABS: Yeast-Urine RARE /hpf (None Seen)
[2020-09-11 20:38] LABS: Amphetamine Urine VISTA POSITIVE (<1000 ng/mL); Barbiturate Urine VISTA NEGATIVE (< 200 ng/mL); Benzodiazepine Urine VISTA POSITIVE (< 200 ng/mL); Cocaine Urine VISTA NEGATIVE (< 300 ng/mL); Ecstacy Urine VISTA POSITIVE (< 500 ng/mL); Methadone Urine VISTA NEGATIVE (< 300 ng/mL); PCP Urine VISTA NEGATIVE (< 25 ng/mL); THC Urine VISTA POSITIVE (< 50 ng/mL); Vista UDS pH Range 5
[2020-09-11 20:41] LABS: CPK Total, Creatine Kinase 1857 U/L (26-192)
[2020-09-11] MEDS: 0.9% Normal Saline 1,000 ML 250 ML IV (20:48)
[2020-09-11 20:49] VITALS: BP 104/58; PULSE 123; RESP 17; TEMP 37.1; O2SAT 94
[2020-09-11] MEDS: cycloBENZAPRine HCl 10 MG Tablet PO (21:56)
--- NOTE | 2020-09-11 22:16 | ED.RN ---
CALLED PHYSICIANS AT 2210 ETA WOULD BE 90 MINUTES FOR A RIDE TO [facility]
[2020-09-11 22:25] VITALS: BP 93/67; PULSE 114; RESP 18; TEMP 37.7; O2SAT 94
[2020-09-11] MEDS: levoFLOXacin IV 750 MG/150 ML BAG 100 MG IV (22:25)
[2020-09-11 23:55] VITALS: BP 92/65; PULSE 119; RESP 14; O2SAT 97
== END 2020-09-12 00:05 | disposition short-term general hospital (02) ==
PROVIDERS: Emergency Provider Emergency Medicine
DX: A41.9 Sepsis, unspecified organism (principal); F19.10 Other psychoactive substance abuse, uncomplicated; N39.0 Urinary tract infection, site not specified; I82.402 Acute embolism and thrombosis of unspecified deep veins of left lower extremity; E66.9 Obesity, unspecified; Z68.27 Body mass index [BMI] 27.0-27.9, adult; F17.200 Nicotine dependence, unspecified, uncomplicated
CPT/HCPCS: 36415; 70450; 71045; 71275; 74177; 80053; 80307; 81001; 82077; 82550; 83605; 83690; 84484; 85025; 85610; 85730; 87040; 87077; 87086; 87088; 87186; 87426; 93005; 96361; 96365; 96366; 96368; 96372; 96375; 99285; J7030; J7050; Q9967; A4216

== ENCOUNTER 2022-08-04 14:50 | Outpatient (CLI) | payer MEDICAID, SELFPAY ==
[2022-08-04 15:46] LABS: Absolute Lymphocyte Count 3.09 X10^3/uL (0.83-4.51); Absolute Neutrophil Count 3.6 X10^3/uL (2.0-7.7); Basophil# 0.07 X10^3/uL; Basophil% 0.9 % (0-1); Eosinophil# 0.16 X10^3/uL; Eosinophils% 2.1 % (0-5); Hematocrit 45.3 % (37-47); Hemoglobin 15.2 g/dL (12.0-15.0); Lymphocyte # 3.09 X10^3/ul (0.83-4.51); Lymphocyte % 41.4 % (19-41); Mean Corp Hgb Conc 33.6 g/dL (32-36); Mean Corpuscular Hgb 30.6 pg (27.0-32.0); Mean Corpuscular Volume 91.3 fL (81-99); Mean Platelet Vol. 9.3 fl (6.2-12.0); Monocyte# 0.53 X10^3/uL; Monocyte% 7.1 % (0-10); NRBC Flagged by Analyzer 0 % (0-5); Neutrophil # 3.59 X10^3/uL (2.7-7.7); Neutrophil % 48.2 % (47-70); Platelet Count 350 K/mm3 (150-450); RBC Distribution Width CV 13.8 % (11.6-14.6); RBC Distribution Width SD 46.7 fl (35.1-43.9); Red Blood Count 4.96 M/mm3 (4.2-5.4); White Blood Count 7.5 K/mm3 (4.4-11.0)
[2022-08-04 15:51] LABS: Erythrocyte Sedimentation Rate 16 mm/hr (0-30); International Normalized Ratio 0.9; Prothrombin Time (Protime)PT. 12.1 SECONDS (11.7-14.9)
[2022-08-04 16:03] LABS: Hemoglobin A1c 5.4 % (3.8-5.6)
[2022-08-04 16:11] LABS: ALB/GLOB Ratio 0.8 RATIO (0.9-2.4); AST(SGOT) 113 U/L (15-37); Alanine Aminotransfer ALT/SGPT 373 U/L (13-56); Albumin, Serum 3.8 g/dL (3.2-5.0); Alkaline Phosphatase 92 U/L (45-117); Anion Gap 5 (5-15); BUN 13 mg/dL (7-18); BUN/Creat Ratio 18.4 RATIO (10-20); CRP < 2.90 mg/L (0.0-3.0); Calcium,Total 9.1 mg/dL (8.5-10.1); Chloride 104 mmol/L (98-107); Creatinine, Serum 0.71 mg/dL (0.55-1.02); EST Glomerular Filtration Rate 95 mL/min (>60); Est Glom Filt Rate - Afr Amer 115 mL/min (>60); Ferritin 54 ng/mL (8-252); Free T3 2.5 pg/mL (2.18-3.98); Globulin 4.8 g/dL (2.2-4.2); Glucose 86 mg/dL (74-106); LDH 220 U/L (84-246); Potassium 4.2 mmol/L (3.5-5.1); Protein, Total 8.6 g/dL (6.4-8.2); Sodium Level 135 mmol/L (136-145); T4 Free Direct 1.05 ng/dL (0.76-1.46); Thyroid Stim Hormone (TSH) 1.22 uIU/mL (0.358-3.74)
[2022-08-04 16:21] LABS: HIV - WCH Non-Reactive (Nonreactive)
[2022-08-06 14:10] LABS: Anti-Centromere B Ab <0.2 AI (0.0-0.9); Anti-Chromatin <0.2 AI (0.0-0.9); Anti-Jo <0.2 AI (0.0-0.9); Anti-Scleroderma-70 AB <0.2 AI (0.0-0.9); RNP Ab 0.4 AI (0.0-0.9); SJOGREN'S Anti-SS-A test < 0.2 AI (0.0-0.9); SJOGREN'S Anti-SS-B test < 0.2 AI (0.0-0.9); Smith Ab <0.2 AI (0.0-0.9)
[2022-08-07 08:30] LABS: Anti-Mitochondrial AB <20.0 Units (0.0-20.0); Anti-dsDNA Ab 3 IU/mL (0-9)
== END 2022-08-04 23:59 | disposition home or self-care (01) ==
PROVIDERS: PCP Student in an Organized Health Care Education/Training Program; Visit Provider Nurse Practitioner Adult Health
DX: E05.90 Thyrotoxicosis, unspecified without thyrotoxic crisis or storm (principal); B19.20 Unspecified viral hepatitis C without hepatic coma
CPT/HCPCS: 36415; 80053; 80074; 82105; 82140; 82164; 82390; 82525; 82728; 83010; 83036; 83516; 83615; 84439; 84443; 84481; 85025; 85610; 85652; 86140; 86225; 86235; 86256; 86703; 87522; 87902

== ENCOUNTER → 2022-09-06 | Outpatient (CLI) | payer MEDICAID, SELFPAY ==
--- NOTE | 2022-09-06 15:10 | CT_ITS ---
INDICATION: ADRENAL ADENOMA, RIGHT EXAMINATION: CT ABDOMEN AND PELVIS WITH CONTRAST - CT Abdomen And Pelvis W/ Contrast Injection TECHNIQUE: Helically acquired images were obtained of the abdomen and pelvis following IV contrast. A radiation dose optimization technique was used for this scan. IV Contrast dosage and agent: 100 cc Isovue-300 Oral contrast: None. COMPARISON: 09/11/2020 FINDINGS: LOWER CHEST: Bibasilar dependent changes. No cardiomegaly or pericardial effusion. LIVER: Homogeneous. No concerning focal mass. GALLBLADDER AND BILIARY TREE: No calcified gallstones. No gallbladder distension or wall edema. No intra- or extrahepatic biliary ductal dilation. PANCREAS: No focal cystic or solid mass. SPLEEN: Normal size without focal cystic or solid mass. ADRENAL GLANDS: Right adrenal nodule significantly decreased in size, currently 2.0 x 0.9 cm. No left adrenal nodule. KIDNEYS AND URETERS: Normal renal size and position. No hydronephrosis. PERITONEUM: No ascites or free air. BOWEL: Normal appendix. No stomach or bowel distension. No focal inflammatory change. LYMPH NODES: No enlarged mesenteric or retroperitoneal lymph nodes. VESSELS: Aorta is non-dilated. URINARY BLADDER: Unremarkable. REPRODUCTIVE ORGANS: No pelvic masses. 2.4 cm right ovarian cyst. ABDOMINAL WALL: No discrete abdominal or pelvic wall hernia. BONES: No acute bony abnormality. Stable surgical changes from pelvic and SI joint fixation. CT/Abdomen/Pelvis WITH Contrast IMPRESSION: Interval decrease in the right adrenal nodule from prior maximum dimension 4.1 cm to current 2.0 cm. No acute changes in the abdomen or pelvis. Electronically Signed: Wan Mauro MD at 20:47 EDT ,
== END | disposition home or self-care (01) ==
PROVIDERS: PCP Student in an Organized Health Care Education/Training Program; Referring Provider Student in an Organized Health Care Education/Training Program; Visit Provider Student in an Organized Health Care Education/Training Program
DX: M79.89 Other specified soft tissue disorders (principal); D35.01 Benign neoplasm of right adrenal gland
CPT/HCPCS: 74177; Q9967

== ENCOUNTER → 2022-09-07 | Outpatient (CLI) | payer MEDICAID, SELFPAY ==
--- NOTE | 2022-09-07 07:51 | US_ITS ---
STUDY: ABDOMINAL ULTRASOUND - RIGHT UPPER QUADRANT REASON FOR VISIT: Female, 47 years old hepatitis C/elastography -- RUQ TECHNIQUE: Ultrasound evaluation of the right upper quadrant was performed with real-time and static de la garza-scale imaging. TECHNICAL QUALITY: Adequate. COMPARISON: Comparison made with prior CT scan of the abdomen and pelvis dated September 06, 2022. FINDINGS: Liver: The liver measures 13.9 cm. There is mild increased echogenicity consistent with mild degree of fatty infiltration. The bile ducts are within normal limits. There is hepatic color flow. The direction of portal flow is hepatopetal. There is no demonstrated mass lesion. Gallbladder: Normal distended gallbladder. The gallbladder wall measures 2.2 mm. There is a negative sonographic Harris''s sign. There is no pericholecystic fluid. There are no gallstones. Common Bile Duct (C.B.D.): The common bile duct measures 4.4 mm. Pancreas: Normal size of the head, body and tail of the pancreas. There is normal echogenicity of the pancreas. There is no demonstrated pancreatic mass or cyst. Right Kidney: Normal size of the right kidney. The right kidney measures 11 cm x 6.7 cm x 4.8 cm. Normal renal cortex. The right cortex measures 1.7 cm. There is no demonstrated renal mass or cyst. There is no right hydronephrosis. US/Abdomen Limited IMPRESSION: Mild degree of fatty infiltration of the liver. Electronically Signed: Maik Madrigal MD at 13:46 EDT ,
--- NOTE | 2022-09-07 07:51 | US_ITS ---
STUDY: ABDOMINAL ULTRASOUND - ELASTOGRAPHY REASON FOR VISIT: Female, 47 years old. Hepatitis C. TECHNIQUE: Liver stiffness measurements were obtained on a [email or web address] RS 85 ultrasound machine using a CA 1-7 probe following the SRU guidelines. 3 measurements were obtained using a 2-D-SWE method. TheIQR/M was 21 % suggesting a quality data set. TECHNICAL QUALITY: Adequate. COMPARISON: None. FINDINGS: Liver: Mild degree of fatty infiltration of the liver. Median liver stiffness measured 8.5 kPa. Abdomen: There is no demonstrated mass lesion. US/Elastography Parenchyma/Organ IMPRESSION: Liver stiffness measures 8.5 kPa compatible with F2-F3 (Mild to moderate liver fibrosis) Metavir score. Electronically Signed: Maik Madrigal MD at 13:47 EDT ,
== END | disposition home or self-care (01) ==
LOC: US 07:50
PROVIDERS: PCP Student in an Organized Health Care Education/Training Program; Referring Provider Nurse Practitioner Adult Health; Visit Provider Nurse Practitioner Adult Health
DX: B19.20 Unspecified viral hepatitis C without hepatic coma (principal)
CPT/HCPCS: 76705; 76981

== ENCOUNTER → 2022-12-20 | Outpatient (CLI) | payer MEDICAID, SELFPAY ==
[2022-12-20 12:07] LABS: Absolute Lymphocyte Count 3.07 X10^3/uL (0.83-4.51); Absolute Neutrophil Count 4.5 X10^3/uL (2.0-7.7); Basophil# 0.08 X10^3/uL; Eosinophil# 0.12 X10^3/uL; Eosinophils% 1.4 % (0-5); Hematocrit 43.2 % (37-47); Hemoglobin 14.7 g/dL (12.0-15.0); Lymphocyte # 3.07 X10^3/ul (0.83-4.51); Lymphocyte % 36.7 % (19-41); Mean Corpuscular Hgb 30.4 pg (27.0-32.0); Mean Corpuscular Volume 89.4 fL (81-99); Monocyte# 0.46 X10^3/uL; Monocyte% 5.5 % (0-10); NRBC Flagged by Analyzer 0 % (0-5); Neutrophil # 4.54 X10^3/uL (2.7-7.7); Neutrophil % 54.3 % (47-70); Platelet Count 315 K/mm3 (150-450); RBC Distribution Width CV 12.6 % (11.6-14.6); RBC Distribution Width SD 41.3 fl (35.1-43.9); Red Blood Count 4.83 M/mm3 (4.2-5.4); White Blood Count 8.4 K/mm3 (4.4-11.0)
[2022-12-20 12:34] LABS: ALB/GLOB Ratio 0.9 RATIO (0.9-2.4); AST(SGOT) 18 U/L (15-37); Alanine Aminotransfer ALT/SGPT 24 U/L (13-56); Albumin, Serum 3.8 g/dL (3.2-5.0); Alkaline Phosphatase 60 U/L (45-117); Anion Gap 3 (5-15); BUN 9 mg/dL (7-18); BUN/Creat Ratio 10.8 RATIO (10-20); Calcium,Total 8.8 mg/dL (8.5-10.1); Chloride 106 mmol/L (98-107); Creatinine, Serum 0.83 mg/dL (0.55-1.02); EST Glomerular Filtration Rate 78 mL/min (>60); Est Glom Filt Rate - Afr Amer 95 mL/min (>60); Globulin 4.1 g/dL (2.2-4.2); Glucose 90 mg/dL (74-106); Potassium 4.2 mmol/L (3.5-5.1); Protein, Total 7.9 g/dL (6.4-8.2); Sodium Level 134 mmol/L (136-145)
[2022-12-21 14:10] LABS: HCV Quant. RNA PCR HCV Not Detected IU/mL (.)
== END | disposition home or self-care (01) ==
PROVIDERS: PCP Student in an Organized Health Care Education/Training Program; Referring Provider Internal Medicine Gastroenterology; Visit Provider Internal Medicine Gastroenterology
DX: B19.20 Unspecified viral hepatitis C without hepatic coma (principal)
CPT/HCPCS: 36415; 80053; 85025; 87522

== ENCOUNTER → 2023-01-04 | Outpatient (CLI) | payer MEDICAID, SELFPAY | END | disposition home or self-care (01) | LOC: LABSPEC 16:13 | PROVIDERS: PCP Student in an Organized Health Care Education/Training Program; Referring Provider Physician Assistant; Visit Provider Physician Assistant | DX: Z11.52 Encounter for screening for COVID-19 (principal) | CPT/HCPCS: 87635 ==

== ENCOUNTER 2023-03-08 08:50 | Day surgery (SDC) | payer MEDICAID, SELFPAY ==
[2023-03-08] VITALS (8 sets, daily range): BP systolic 79–119; BP diastolic 56–81; PULSE 72–88; RESP 12–17; TEMP 36.2–36.6; O2SAT 96–100
[2023-03-08 09:27] LABS: Internal QC Validated? YES +Cl - CLEAR BKGD; Pregnancy, Urine Negative Negative; Record Kit Lot#,Urine Preg 667200
[2023-03-08] MEDS: Lactated Ringers 1,000 ML 15 ML IV (09:32)
--- NOTE | 2023-03-08 09:57 | PCM.HP.BLA ---
History and Physical Date of Admission: 03/08/23 Chief Complaint: hepatitis C Details: BRYAN BARRETT, is a 47 F who presents to the office today to establish with GI for hepatitis C which was diagnosed in 2021. She thinks she was infected in 2020, used IV drugs then, she didn't know her then-boyfriend was positive for hepatitis C and hepatitis B. She is immune to hepatitis B (11/2021 hep B surf ab positive). No prior treatment for hepatitis C. She reports early satiety, bloating, chronic nausea. No vomiting. No dysphagia. Has RUQ and epigastric discomfort intermittently. No heartburn since she took esomeprazole for one week recently. Less constipation since starting a probiotic. No melena or hematochezia. She has fatigue, hair loss, weight gain. No jaundice. Has generalized pruritus. No rash. No ascites or edema. Recent AST 242, ALT 585 ROS Const Constitutional: Positive for fatigue and weight change ENT ENT: No difficulty swallowing Gastro GI: Positive for abdominal pain, bloating, constipation and nausea/dyspepsia; No belching, change in bowel habits, change in stool character, coffee ground emesis, cramping, diarrhea, heartburn, difficulty swallowing, feeling full early, excessive flatus, incontinent of stools, Vomiting blood/hematemesis, Blood in stool, loose stools, Black,tarry stools, pain with swallowing, vomiting or other Musc Musculoskeletal: Positive for joint pain, joint swelling, muscle weakness, stiffness and Arthritis Skin Skin: No yellowing of the eye or itchy eyes Psych Psychiatric: No anxiety and Positive for depression Endo Endocrine: Positive for fatigue and weight change Aller/Imm Allergy/Immunologic: No itchy eyes Wil/Lymp Hematologic/Lymphatic: No easy bleeding or easy bruising Exam Const General: cooperative and no acute distress Nutritional Appearance: overweight Orientation: alert, awake and oriented x3 Eyes Sclera: sclerae normal Resp Effort & Inspection: normal respiratory effort GI Inspection: normal to inspection Palpation: soft, no hepatosplenomegaly, no masses and nontender Skin General: no rashes or lesions noted and no jaundice Quality Reporting Tobacco Screening ([facility] 138) Smoking Status: Current every day smoker Assessment and Plan Assessment and Plan (1) Hepatitis C: Status: Chronic Plan: Needs [facility] ok to continue suboxone Labs today, will check hep C quant, genotype and liver labs; will call her with results and will then treat hep C US/elastography EGD to eval epigastric pain, screening colonoscopy Orders: Orders HIV - [facility] Today B19.20 - Unspecified viral hepatitis C without hepatic coma Comprehensive Metabolic Profil Today B19.20 - Unspecified viral hepatitis C without hepatic coma CRP Today B19.20 - Unspecified viral hepatitis C without hepatic coma Ferritin Today B19.20 - Unspecified viral hepatitis C without hepatic coma LDH Today B19.20 - Unspecified viral hepatitis C without hepatic coma Hemoglobin A1c Today B19.20 - Unspecified viral hepatitis C without hepatic coma Prothrombin Time w/INR Today B19.20 - Unspecified viral hepatitis C without hepatic coma CBC W/Diff, Automated Today B19.20 - Unspecified viral hepatitis C without hepatic coma Erythrocyte Sed Rate Today B19.20 - Unspecified viral hepatitis C without hepatic coma Anti-Mitochondrial AB Today B19.20 - Unspecified viral hepatitis C without hepatic coma SONAL Comprehensive Panel Today B19.20 - Unspecified viral hepatitis C without hepatic coma Hepatitis Panel Acute Today B19.20 - Unspecified viral hepatitis C without hepatic coma Angiotensin Convert Enzyme Today B19.20 - Unspecified viral hepatitis C without hepatic coma AFP, Tumor Marker Today B19.20 - Unspecified viral hepatitis C without hepatic coma ANCA Today B19.20 - Unspecified viral hepatitis C without hepatic coma Anti-Smooth Muscle ABS Today B19.20 - Unspecified viral hepatitis C without hepatic coma Ceruloplasmin Today B19.20 - Unspecified viral hepatitis C without hepatic coma Copper, Serum or Plasma Today B19.20 - Unspecified viral hepatitis C without hepatic coma Haptoglobin Today B19.20 - Unspecified viral hepatitis C without hepatic coma Hepatitis C,RNA PCR Viral Load Today B19.20 - Unspecified viral hepatitis C without hepatic coma Hepatitis C Genotype Today B19.20 - Unspecified viral hepatitis C without hepatic coma Ammonia Today B19.20 - Unspecified viral hepatitis C without hepatic coma Abdomen Limited Today B19.20 - Unspecified viral hepatitis C without hepatic coma Elastography Parenchyma/Organ Today B19.20 - Unspecified viral hepatitis C without hepatic coma I have examined the patient and the H&P has been reviewed. There are no clinical changes since date of exam.
--- NOTE | 2023-03-08 10:00 | EGD_PTH ---
PATIENT: BRYAN EVANS LOC: EN U#:[id number] AGE/SX: 47/F ROOM: RE03/08/[address]: Dr. Fred Shelton DO : 1975 BED: DIS: 03/08/2023 SPEC #: [id number] RECD: 03/08/23 13:54 STATUS: DANISHA REQ #: [id number] CRISTINO: 03/08/23 10:[address]: Fred Shelton DEPT: SURGICAL PATHOLOGY RECD BY: Susan Ruiz ENTERED: 03/09/23 08:45 SP TYPE: EGD BIOPSY OT DR: Dr. Daisy Lopez MD Tissues: A - Gastric mucous membrane B - Esophagus, NOS C - COLON BIOPSY Procedures: Special Stain Group II Surgery Specimen Level IV Alcian Blue/PAS (control) HEADER OPERATION: Colonoscopy with biopsy, EGD with biopsy PRE-OP DIAGNOSIS: Hepatitis C TISSUE SUBMITTED: A - Gastric ulcer biopsy, B - Distal esophagus biopsy, C - Random colon biopsy MICROSCOPIC DIAGNOSIS A. Gastric ulcer, biopsy: Mild gastritis. See microscopic description and comment. B. Distal esophagus, biopsy: Fragments of gastroesophageal mucosa with chronic inflammation. Intestinal metaplasia (goblet cell metaplasia) is not identified. See comment. C. Colon, random biopsy: Fragments of colonic mucosa, no pathologic diagnosis. SJ:rg 03/10/2023 COMMENT A. The results of immunohistochemistry for Helicobacter pylori will be reported separately ([id number]). B. Alcian blue/PAS stain with matched control is used in the evaluation of the specimen. MICROSCOPIC DESCRIPTION Slides are reviewed. A. The specimen shows fragments of gastric mucosa with chronic inflammatory cell infiltrates in the lamina propria consisting of lymphocytes and plasma cells, consistent with mild chronic gastritis. GROSS DESCRIPTION A - Received in fixative is one container labeled with the patient's name and designated gastric ulcer biopsy. The specimen consists of two irregular fragments of light osborne soft tissue that in aggregate measure 1.0 x 0.5 x 0.1 cm. The specimen is totally submitted in one cassette. B - Received in fixative is one container labeled with the patient's name and designated distal esophagus. The specimen consists of multiple irregular fragments of light osborne soft tissue that in aggregate measure 0.5 x 0.3 x 0.1 cm. The specimen is totally submitted in one cassette. C - Received in fixative is one container labeled with the patient's name and designated random colon biopsy. The specimen consists of multiple irregular fragments of light osborne soft tissue that in aggregate measure 2.0 x 1.0 x 0.1 cm. The specimen is totally submitted in one cassette. / AM:seth 03/09/2023 TC:3 CPT: 69308 x3, 13770
--- NOTE | 2023-03-08 10:00 | IMM_PTH ---
PATIENT: BRYAN EVANS LOC: EN U#:[id number] AGE/SX: 47/F ROOM: RE03/08/[address]: Dr. Fred Shelton DO : 1975 BED: DIS: 03/08/2023 SPEC #: [id number] RECD: 03/09/23 13:25 STATUS: DANISHA REQ #: [id number] CRISTINO: 03/08/23 10:[address]: Fred Shelton DEPT: IMMUNOHISTOCHEMISTRY RECD BY: Deanne Zamudio ENTERED: 03/09/23 13:26 SP TYPE: IMMUNO OTHR DR: Dr. Daisy Lopez MD Tissues: A - Stomach, NOS Procedures: H Pylori (initial) PHYSICIAN & INSTITUTION [place] [address] SPECIMEN INFORMATION: Tissue Source: A - Gastric ulcer Clinical Info: Hepatitis C Specimen Number: [id number] CPT code: 77890 METHODOLOGY: Deparaffinized sections of prefer/formalin-fixed tissue or PAP/DQ stained slides are incubated with monoclonal/polyclonal antibodies/oligonucleotide probes. Localization is made via biotin free immunoperoxidase method. Appropriate controls are performed and reacted as expected. Results on target cell population are indicated in the following table: RESULTS: ANTIBODY / CLONE RESULT Block A H Pylori (polyclonal) negative These tests were developed and their performance characteristics determined by [facility]. They may not have been cleared or approved by the U.S. Food and Drug Administration. The FDA has determined that such clearance or approval is not necessary. The above immunohistochemical/dualISH markers are ordered and reviewed by the Pathologist. INTERPRETATION: A. Gastric ulcer, biopsy: Negative for Helicobacter pylori organisms. SJ:seth 03/10/2023
--- NOTE | 2023-03-08 10:33 | OP.EGD_ITS ---
Patient Name: Catherine Morton Procedure Date: 03/08/2023 10:02 AM Date of : 1975 Age: 47 Procedure: Upper GI endoscopy Indications: Epigastric abdominal pain, Functional Dyspepsia Providers: Fred Shelton DO Referring MD: Daisy Lopez Md Medicines: Monitored Anesthesia Care Patient Profile: This is a 47 year old female. Refer to note in patient chart for documentation of history and physical. Patient has symptoms of acute abdominal cramping and chronic epigastric abdominal pain. Complications: No immediate complications. Procedure: Pre-Anesthesia Assessment: - Prior to the procedure, a History and Physical was performed, and patient medications and allergies were reviewed. The risks and benefits of the procedure and the sedation options and risks were discussed with the patient. All questions were answered and informed consent was obtained. Patient identification and proposed procedure were verified by the physician in the pre-procedure area. Mental Status Examination: alert and oriented. Airway Examination: normal oropharyngeal airway and neck mobility. Respiratory Examination: clear to auscultation. CV Examination: normal. Prophylactic Antibiotics: The patient does not require prophylactic antibiotics. Prior Anticoagulants: The patient has taken no anticoagulant or antiplatelet agents. ASA Grade Assessment: II - A patient with mild systemic disease. After reviewing the risks and benefits, the patient was deemed in satisfactory condition to undergo the procedure. The anesthesia plan was to use monitored anesthesia care (MAC). Immediately prior to administration of medications, the patient was re-assessed for adequacy to receive sedatives. The heart rate, respiratory rate, oxygen saturations, blood pressure, adequacy of pulmonary ventilation, and response to care were monitored throughout the procedure. The physical status of the patient was re-assessed after the procedure. After obtaining informed consent, the endoscope was passed under direct vision. Throughout the procedure, the patient's blood pressure, pulse, and oxygen saturations were monitored continuously. The Colonoscope was introduced through the mouth, and advanced to the second part of duodenum. The upper GI endoscopy was accomplished without difficulty. The patient tolerated the procedure well. Scope In: 10:10:52 AM Scope Out: 10:15:13 AM Total Procedure Duration Time 0 hours 4 minutes 21 seconds Findings: The Z-line was irregular and was found 39 cm from the incisors. Biopsies were taken with a cold forceps for histology. Verification of patient identification for the specimen was done. Estimated blood loss was minimal. A hiatal hernia was present. One non-bleeding linear gastric ulcer with no stigmata of bleeding was found in the gastric antrum. The lesion was 6 mm in largest dimension. Biopsies were taken with a cold forceps for histology. Verification of patient identification for the specimen was done. Estimated blood loss was minimal. Biopsies were taken with a cold forceps for Helicobacter pylori testing. Verification of patient identification for the specimen was done. Estimated blood loss was minimal. Patchy mildly erythematous mucosa without active bleeding and with no stigmata of bleeding was found in the duodenal bulb and in the first portion of the duodenum. Biopsies were taken with a cold forceps for histology. Verification of patient identification for the specimen was done. Estimated blood loss was minimal. Impression: - Z-line irregular, 39 cm from the incisors. Biopsied. - Hiatal hernia. - Non-bleeding gastric ulcer with no stigmata of bleeding. Biopsied. - Erythematous duodenopathy. Biopsied. Recommendation: - Discharge patient to home (via wheelchair). - Resume previous diet. - Use Protonix (pantoprazole) 40 mg PO BID for 8 weeks. - Continue present medications. Procedure Code(s): --- Professional --- 92074, Esophagogastroduodenoscopy, flexible, transoral; with biopsy, single or multiple CPT copyright 2021 [employer]. All rights reserved. The codes documented in this report are preliminary and upon hand trucker review may be revised to meet current compliance requirements. Fred Shelton DO 03/08/2023 10:33:01 AM This report has been signed electronically. Number of Addenda: 0 Note Initiated On: 03/08/2023 10:02 AM
--- NOTE | 2023-03-08 10:33 | OP.CCLET_ITS ---
03/08/2023 Daisy Lopez Md Re : Upper GI endoscopy procedure for Catherine Morton Dear Jessica This procedure was performed on Wednesday, March 08, 2023. My impressions and recommendations are as follows: Impressions : - Z-line irregular, 39 cm from the incisors. Biopsied. - Hiatal hernia. - Non-bleeding gastric ulcer with no stigmata of bleeding. Biopsied. - Erythematous duodenopathy. Biopsied. Recommendations : - Discharge patient to home (via wheelchair). - Resume previous diet. - Use Protonix (pantoprazole) 40 mg PO BID for 8 weeks. - Continue present medications. My findings are described in the full procedure note, which is enclosed. If I can be of further assistance, please feel free to contact me at . Sincerely, Fred Shelton, 03/08/2023 10:33:01 AM This report has been signed electronically.
--- NOTE | 2023-03-08 10:36 | OP.CCLET_ITS ---
03/08/2023 Daisy Lopez Md Re : Colonoscopy procedure for Catherine Morton Dear Jessica This procedure was performed on Wednesday, March 08, 2023. My impressions and recommendations are as follows: Impressions : - Diverticulosis in the recto-sigmoid colon and in the sigmoid colon. - Congested mucosa in the recto-sigmoid colon and in the sigmoid colon. Biopsied. Recommendations : - Discharge patient to home. - Resume previous diet. - Continue present medications. - Await pathology results. - Repeat colonoscopy in 10 years for screening purposes. My findings are described in the full procedure note, which is enclosed. If I can be of further assistance, please feel free to contact me at . Sincerely, Fred Shelton, 03/08/2023 10:35:42 AM This report has been signed electronically.
--- NOTE | 2023-03-08 10:36 | OP.COLON_ITS ---
Patient Name: Catherine Morton Procedure Date: 03/08/2023 10:16 AM Date of : 1975 Age: 47 Procedure: Colonoscopy Indications: Screening for colorectal malignant neoplasm Providers: Fred Shelton DO Referring MD: Daisy Lopez Md Medicines: Monitored Anesthesia Care Patient Profile: This is a 47 year old female. Refer to note in patient chart for documentation of history and physical. Patient has symptoms of acute abdominal cramping and chronic epigastric abdominal pain. Last Colonoscopy: none. The patient's first colonoscopy is today. Complications: No immediate complications. Procedure: Pre-Anesthesia Assessment: - Prior to the procedure, a History and Physical was performed, and patient medications and allergies were reviewed. The risks and benefits of the procedure and the sedation options and risks were discussed with the patient. All questions were answered and informed consent was obtained. Patient identification and proposed procedure were verified by the physician in the pre-procedure area. Mental Status Examination: alert and oriented. Airway Examination: normal oropharyngeal airway and neck mobility. Respiratory Examination: clear to auscultation. CV Examination: normal. Prophylactic Antibiotics: The patient does not require prophylactic antibiotics. Prior Anticoagulants: The patient has taken no anticoagulant or antiplatelet agents. ASA Grade Assessment: II - A patient with mild systemic disease. After reviewing the risks and benefits, the patient was deemed in satisfactory condition to undergo the procedure. The anesthesia plan was to use monitored anesthesia care (MAC). Immediately prior to administration of medications, the patient was re-assessed for adequacy to receive sedatives. The heart rate, respiratory rate, oxygen saturations, blood pressure, adequacy of pulmonary ventilation, and response to care were monitored throughout the procedure. The physical status of the patient was re-assessed after the procedure. After I obtained informed consent, the scope was passed under direct vision. Throughout the procedure, the patient's blood pressure, pulse, and oxygen saturations were monitored continuously. The Colonoscope was introduced through the anus and advanced to the cecum, identified by appendiceal orifice and ileocecal valve. The colonoscopy was performed without difficulty. The patient tolerated the procedure well. The quality of the bowel preparation was adequate. The terminal ileum, ileocecal valve, appendiceal orifice, and rectum were photographed. Scope In: 10:16:45 AM Scope Withdrawal Time 0 hours 6 minutes 53 seconds Scope Out: 10:26:32 AM Total Procedure Duration Time 0 hours 9 minutes 47 seconds Findings: The perianal and digital rectal examinations were normal. A few small and large-mouthed diverticula were found in the recto-sigmoid colon and sigmoid colon. An area of mildly congested mucosa was found in the recto-sigmoid colon and in the sigmoid colon. Biopsies were taken with a cold forceps for histology. Verification of patient identification for the specimen was done. Estimated blood loss was minimal. Impression: - Diverticulosis in the recto-sigmoid colon and in the sigmoid colon. - Congested mucosa in the recto-sigmoid colon and in the sigmoid colon. Biopsied. Recommendation: - Discharge patient to home. - Resume previous diet. - Continue present medications. - Await pathology results. - Repeat colonoscopy in 10 years for screening purposes. Procedure Code(s): --- Professional --- 16979, Colonoscopy, flexible; with biopsy, single or multiple CPT copyright 2021 [employer]. All rights reserved. The codes documented in this report are preliminary and upon data coder operator review may be revised to meet current compliance requirements. Fred Shelton DO 03/08/2023 10:35:42 AM This report has been signed electronically. Number of Addenda: 0 Note Initiated On: 03/08/2023 10:16 AM
== END 2023-03-08 11:31 | disposition home or self-care (01) ==
LOC: EN 08:53 → AC 09:07
PROVIDERS: Anesthesiology; PCP Student in an Organized Health Care Education/Training Program; Referring Provider Student in an Organized Health Care Education/Training Program; Visit Provider Internal Medicine Gastroenterology
PROC: 0DJD8ZZ Inspection of Lower Intestinal Tract, Via Natural or Artificial Opening Endoscopic (ICD-10-PCS; CPT 45378; principal; 2023-03-08 09:55)
DX: Z12.11 Encounter for screening for malignant neoplasm of colon (principal); B18.2 Chronic viral hepatitis C; K44.9 Diaphragmatic hernia without obstruction or gangrene; F17.200 Nicotine dependence, unspecified, uncomplicated; R10.13 Epigastric pain; K25.9 Gastric ulcer, unspecified as acute or chronic, without hemorrhage or perforation; K57.30 Diverticulosis of large intestine without perforation or abscess without bleeding; R53.83 Other fatigue; L29.9 Pruritus, unspecified; R10.11 Right upper quadrant pain; R14.0 Abdominal distension (gaseous); R11.0 Nausea; K29.70 Gastritis, unspecified, without bleeding; K22.89 Other specified disease of esophagus; K29.80 Duodenitis without bleeding; L65.9 Nonscarring hair loss, unspecified; R63.5 Abnormal weight gain
CPT/HCPCS: 45380; 43239; 81025; 88305; 88313; 88342; J7120

== ENCOUNTER → 2024-03-25 | Outpatient (CLI) | payer OTHER, SELFPAY ==
[2024-03-25 12:39] LABS: Absolute Lymphocyte Count 2.32 X10^3/uL (0.83-4.51); Absolute Neutrophil Count 5.7 X10^3/uL (2.0-7.7); Basophil# 0.07 X10^3/uL; Basophil% 0.8 % (0-1); Eosinophil# 0.07 X10^3/uL; Eosinophils% 0.8 % (0-5); Hematocrit 43.3 % (37-47); Hemoglobin 14.1 g/dL (12.0-15.0); Lymphocyte # 2.32 X10^3/ul (0.83-4.51); Mean Corp Hgb Conc 32.6 g/dL (32-36); Mean Corpuscular Volume 89.1 fL (81-99); Mean Platelet Vol. 9.7 fl (6.2-12.0); Monocyte# 0.45 X10^3/uL; Monocyte% 5.2 % (0-10); NRBC Flagged by Analyzer 0 % (0-5); Neutrophil # 5.65 X10^3/uL (2.7-7.7); Platelet Count 307 K/mm3 (150-450); RBC Distribution Width CV 13.5 % (11.6-14.6); RBC Distribution Width SD 44.3 fl (35.1-43.9); Red Blood Count 4.86 M/mm3 (4.2-5.4); White Blood Count 8.6 K/mm3 (4.4-11.0)
[2024-03-25 13:03] LABS: Vitamin D,25 Hydroxy 24.8 ng/mL
[2024-03-25 13:07] LABS: AST(SGOT) 12 U/L (15-37); Alanine Aminotransfer ALT/SGPT 24 U/L (13-56); Albumin, Serum 3.9 g/dL (3.2-5.0); Alkaline Phosphatase 64 U/L (45-117); Anion Gap 6 (5-15); BUN 15 mg/dL (7-18); BUN/Creat Ratio 20.1 RATIO (10-20); Calcium,Total 8.8 mg/dL (8.5-10.1); Chloride 106 mmol/L (98-107); Cholesterol 228 mg/dL (200); Creatinine, Serum 0.75 mg/dL (0.55-1.02); EST Glomerular Filtration Rate 88 mL/min (>60); Est Glom Filt Rate - Afr Amer 107 mL/min (>60); Follicle Stimulating Hormone 7.3 mIU/mL; Globulin 4.1 g/dL (2.2-4.2); Glucose 80 mg/dL (74-106); High Density Lipoprotein 75 mg/dL; Luteinizing Hormone 10.9 mIU/mL; Potassium 3.9 mmol/L (3.5-5.1); Sodium Level 137 mmol/L (136-145); Triglycerides 101 mg/dL; Very Low Density Lipoprotein 20 mg/dL (5-40)
[2024-03-28 15:09] LABS: Estrogen, Total, Serum 566 pg/mL (.)
== END | disposition home or self-care (01) ==
LOC: MFPLAB 10:15
PROVIDERS: PCP Family Medicine; Visit Provider Family Medicine
DX: R53.83 Other fatigue (principal); M70.61 Trochanteric bursitis, right hip; Z13.220 Encounter for screening for lipoid disorders; N95.1 Menopausal and female climacteric states
CPT/HCPCS: 36415; 80053; 80061; 82306; 82672; 83001; 83002; 84443; 85025

== ENCOUNTER 2024-11-26 11:15 | Outpatient (CLI) | payer OTHER, SELFPAY ==
[2024-11-26 16:58] LABS: Vitamin D,25 Hydroxy 44.1 ng/mL (30-100)
[2024-11-28 18:08] LABS: Immunoglobulin A 240 mg/dL (87-352)
[2024-12-01 16:07] LABS: Bluegrass, Kentucky <0.10 kU/L (Class 0); Cat Hair/Dander, Standard <0.10 kU/L (Class 0); Cedar, Mountain <0.10 kU/L (Class 0); Cockroach, American <0.10 kU/L (Class 0); Dog Epithelia <0.10 kU/L (Class 0); Egg, Whole <0.10 kU/L (Class 0); Elm, American White <0.10 kU/L (Class 0); Hazelnut Tree <0.10 kU/L (Class 0); Hickory, White <0.10 kU/L (Class 0); Mulberry, White <0.10 kU/L (Class 0); Mussels <0.10 kU/L (Class 0); Oak, White <0.10 kU/L (Class 0); Pigweed, Rough <0.10 kU/L (Class 0); Plantain, English <0.10 kU/L (Class 0); Ragweed, Short/Common <0.10 kU/L (Class 0); Sheep Sorrel(Dock) <0.10 kU/L (Class 0); Sycamore, American <0.10 kU/L (Class 0)
== END 2024-11-26 23:59 | disposition home or self-care (01) ==
LOC: MTLAB 11:18
PROVIDERS: PCP Family Medicine; Referring Provider Family Medicine; Visit Provider Family Medicine
DX: E55.9 Vitamin D deficiency, unspecified (principal); R09.82 Postnasal drip; R05.9 Cough, unspecified
CPT/HCPCS: 36415; 82306; 82784; 83516; 86003; 86005; 86255

== ENCOUNTER → 2025-03-28 | Outpatient (CLI) | payer OTHER, SELFPAY ==
--- NOTE | 2025-03-28 10:12 | RAD_ITS ---
PROCEDURE: CERV SPINE OBL/FLEX/EXT COMP 03/28/2025 REASON FOR EXAM: MYOFASCIAL PAIN TECHNIQUE: Procedure Code: RADSPCFE Modality: DX Procedure: CERV SPINE OBL/FLEX/EXT COMP COMPARISON: None. FINDINGS: BONES: No fracture or focal osseous lesion. Alignment is anatomic in the sagittal projection and is maintained throughout flexion and extension. Fixation hardware in the right clavicle. DISC/DEGENERATIVE CHANGES: Disc spaces are preserved. Bony narrowing of the [id number]-right C3-C4 and C4-C5 neural foramen. Multilevel facet arthropathy, mainly on the left. SOFT TISSUES: No acute abnormality seen. RAD/Cerv Spine Obl/Flex/Ext Comp IMPRESSION: 1. No acute findings. 2. Degenerative changes of the spine. Reading Location: [id number]
== END | disposition home or self-care (01) ==
LOC: MTRAD 10:11
PROVIDERS: PCP Family Medicine; Referring Provider Family Medicine; Visit Provider Family Medicine
DX: M79.18 Myalgia, other site (principal)
CPT/HCPCS: 72052